=== PATIENT | female | born 1970 | race Caucasian/White ===

== ENCOUNTER 2020-06-07 12:56 | Emergency (ER) | payer OTHER, SELFPAY ==
[2020-06-07 13:04] VITALS: BP 118/85; PULSE 75; RESP 20; TEMP 36.7; O2SAT 99; BMI 40.7
[2020-06-07 13:11] VITALS: BP 118/85; PULSE 75; RESP 20; TEMP 36.7; O2SAT 99; BMI 32.3
--- NOTE | 2020-06-07 13:13 | XR_ITS ---
PROCEDURE: XR HAND LT MIN 3V CLINICAL INDICATION: SPLINTER IN RING FINGER Foreign body evaluation COMPARISON: No exams were available for comparison FINDINGS: No fracture or dislocation. No lytic or blastic change. There is normal mineralization. The joint spaces are well-preserved. No significant degenerative/arthritic changes. No erosive changes evident. Other findings:No radiopaque foreign body apparent. Mild degenerative changes 1st metacarpal carpal joint IMPRESSION: No acute findings. Dictated by: Flash Hinojosa MD 06/07/2020 14:35 Flash Hinojosa MD in [place] 06/07/2020 14:35
--- NOTE | 2020-06-07 14:13 | HMH.EDUTC ---
[facility] [place] Clinical Impression: Foreign body of finger of left hand Qualifiers: Encounter type: initial encounter Qualified Code(s): S60.459A - Superficial foreign body of unspecified finger, initial encounter Disposition: Home, Self-Care Condition on Discharge: Good Instructions: DI for Removal of Foreign Body From Skin Additional Instructions: Keep clean and dry Prescriptions: cephALEXin [Cephalexin 500mg Tab] 500 mg PO Q6H 10 Days #40 tab Transmission Status: Pending to [id number] Referrals: Corry Rodriguez APRN [Primary Care Provider] - Time of Disposition: 14:17 Medical Decision Making - Philip Inquiry Pt receiving controlled substance: No Vital Signs: 06/07/20 13:04 06/07/20 13:11 Temperature 98.1 F 98.1 F Temperature Source Oral Oral Pulse Rate [Left Radial] 75 75 Respiratory Rate 20 20 Blood Pressure [Right Arm] 118/85 118/85 Blood Pressure Mean [Right Arm] 96 96 Blood Pressure Source [Right Arm] Automatic Cuff Automatic Cuff Blood Pressure Position [Right Arm] Sitting Sitting 02 Sat by Pulse Oximetry 99 99 Oxygen Delivery Method Room Air Room Air Orders (Tests/Meds): ORDERS Category Date Time Status XR hand LT min 3V Stat Exams 06/07/20 13:13 Taken [facility] [place] - General Stated complaint: AO [id number] splinter in ring finger,left hand Time Seen by Provider: 06/07/20 13:10 Mode of Arrival: Ambulatory Source of Information: Patient Limitations: No Limitations Description of Symptoms (Recalled from Triage Doc. by RN): Piece of wood in left ring finger HEENT Symptoms (Recalled from RN notes): No Resp Symptoms (Recalled from RN notes): No Skin Symptoms (Recalled from RN notes): Yes MS Symptoms (Recalled from RN notes): No Functional Status (Recalled from RN notes): wnl - History of Present Illness Provider Complaint: Patient fell on deck this morning and got a sliver of wood lodged in left ring finger. attempted to get it out and she could not tolerate it. Last tetanus April 2020. Onset (ago): hour(s) (4) Location: left, upper extremity Relieving factors: none Exacerbating factors: none Associated symptoms: denies other symptoms Treatments prior to arrival: none - Related Data Previous Rx's Medication Instructions Recorded cephALEXin [Cephalexin 500mg Tab] 500 mg PO Q6H 10 Days #40 tab 06/07/20 Allergies Allergy/AdvReac Type Severity Reaction Status Date / Time daptomycin [From Cubicin] AdvReac Verified 06/07/20 13:17 metronidazole [From Flagyl] AdvReac Verified 06/07/20 13:17 Sulfa (Sulfonamide AdvReac Verified 06/07/20 13:17 Antibiotics) - Worker's Comp Is this a Worker's Comp case?: No [facility] History - Hepatitis A Screen Drug use history?: No High risk sexual behaviors?: No History of sexually transmitted infection?: No Currently employed?: No Childcare worker?: No Do you have indoor plumbing?: Yes Do you have electricity?: Yes Attestation statement:: This patient has been screened for Hepatitis A risk factors. I have reviewed the patient's past medical history: Yes - Social History Alcohol Intake: never Occupational Status: employed ROS Obtained: Yes All systems reviewed & no additional complaints - Musculoskeletal Musculoskeletal: Reports as per HPI Physical Exam - General General appearance: alert, in no apparent distress - Head Head exam: normocephalic - Eye Eye exam: Present: PERRL - ENT ENT exam: Present: normal oropharynx - Respiratory Respiratory exam: Present: normal lung sounds bilaterally - Cardiovascular Cardiovascular exam: Present: regular rate, normal rhythm - Expanded Upper Extremity Exam Left Hand exam: Present: other (wood sliver pad of left ring finger) - Neurological Exam Neurological exam: Present: alert, oriented X3 - Psychiatric Psychiatric exam: Present: normal affect, normal mood - Skin Skin exam: Present: other (foreign body pad left finger
[2020-06-07 14:21] VITALS: BP 118/85; PULSE 75; RESP 20; TEMP 36.7; O2SAT 99
== END 2020-06-07 14:25 | disposition home or self-care (01) ==
LOC: ER 13:05 → UTC 13:05
PROVIDERS: Emergency Provider Physician Assistant; PCP Nurse Practitioner Family
DX: S60.455A Superficial foreign body of left ring finger, initial encounter (principal); W01.198A Fall on same level from slipping, tripping and stumbling with subsequent striking against other object, initial encounter; Y92.019 Unspecified place in single-family (private) house as the place of occurrence of the external cause; Z88.2 Allergy status to sulfonamides
CPT/HCPCS: 10120; 73130; 99202; G0463

== ENCOUNTER 2021-04-18 19:29 | Emergency (ER) | payer OTHER, SELFPAY ==
[2021-04-18 19:37] VITALS: BP 146/83; PULSE 73; RESP 20; TEMP 37.3; O2SAT 95; BMI 33.4
[2021-04-18 19:50] VITALS: BP 146/83; PULSE 73; RESP 20; TEMP 37.3; O2SAT 95; BMI 33.3
[2021-04-18 20:02] LABS: UTC Influenza A Antigen Negative (Negative); UTC Strep Screen (Rapid) Negative (Negative)
[2021-04-18 20:03] LABS: UTC Influenza B Antigen Negative (Negative)
--- NOTE | 2021-04-18 20:18 | HMH.EDUTC ---
[facility] [place] Disposition Clinical Impression: Vertigo Otitis media Qualifiers: Otitis media type: unspecified Laterality: right Qualified Code(s): H66.91 - Otitis media, unspecified, right ear Disposition: Home, Self-Care Condition on Discharge: Good Instructions: Middle Ear Infections (Alternative Therapy), Middle Ear Infection, DI for Vertigo, Amoxicillin Additional Instructions: *Monitor Temp, Over the counter Motrin or Tylenol as directed/as needed Tylenol every 4 hours and Motrin every 6 hours (as long as your family doctor has told you that you can take it) for fever or pain. and straight to ER if unable to lower temp less than 101.0 after medication given *Warm salt water gargles may help to soothe the throat *Throat Lozenges *Warm fluids like tea with honey may help to soothe the throat *Sleep elevated *Humidifier/Vaporizer Take medication as prescribed Slow and steady movements when you go from laying to sitting let your feet dangle before standing up to help with dizziness Follow up with your Family Doctor if symptoms continue or worsen Your throat swab was sent for culture. Those results are typically sent to your primary care. Be sure to follow up in 2-3 days with your family doctor/primary care physician if no improvement so they can review those result and treat if necessary. If you don?t have a primary care doctor, I recommend you get one but in the mean time, you will have to return to a walk in clinic Follow up IMMEDIATELY for new or worsening symptoms or no Noticeable improvement over the next 48-72 hours. 911 for difficulty breathing or swallowing You were tested for today for COVID19 your test result should be back in the next 24-48 hours, you may check the [facility] [employer] [facility] portal for your results if you have trouble logging on or seeing your results you may call You was given a handout with instructions for Self Quarantine and Self isolation for while you wait on test results and what to do if they are positive If you are positive the Health Dept will be contacting you also Make sure to take your Vitamins Vit. C Vit D and Zinc if you can take them Prescriptions: Meclizine HCl 25 mg PO Q8HP PRN #15 tab PRN Reason: Vertigo Transmission Status: Pending to [facility] Amoxicillin [Amoxicillin 875MG Tab] 875 mg PO Q12H #20 tab Transmission Status: P[facility] to [facility] methylPREDNISolone [Medrol 4mg tab] 4 mg PO DIRECTED #21 tab Transmission Status: Pending to [facility] Referrals: Corry Rodriguez APRN [Primary Care Provider] - As needed Forms: Work/School Release Time of Disposition: 20:52 Medical Decision Making - Philip Inquiry Pt receiving controlled substance: No Philip was queried for this patient: No Vital Signs: 04/18/21 19:37 04/18/21 19:50 04/18/21 20:43 Temperature 99.1 F 99.1 F 99.1 F Temperature Source Oral Oral Pulse Rate 73 Pulse Rate [Apical] 73 73 Respiratory Rate 20 20 20 Blood Pressure 146/83 H Blood Pressure [Right Arm] 146/83 H 146/83 H Blood Pressure Mean [Right Arm] 104 104 Blood Pressure Source [Right Arm] Automatic Cuff Automatic Cuff Blood Pressure Position [Right Arm] Sitting Sitting 02 Sat by Pulse Oximetry 95 95 Oxygen Delivery Method Room Air Room Air - Lab Data Lab results reviewed: Yes: I reviewed the patient's lab results. Lab Results 04/18/21 19:45: Influenza Type A Ag Negative, Influenza Type B Ag Negative 04/18/21 19:45: Strep Scn Rapid Clinic Negative Orders (Tests/Meds): ED MEDICATIONS Discontinued Medications Generic Name Dose Route Start Last Admin Trade Name Kim PRN Reason Stop Dose Admin Meclizine HCl 25 mg 04/18/21 20:20 04/18/21 20:29 Meclizine 25mg Tablet PO 04/18/21 20:21 Not Given ONCE ONE Meclizine HCl 12.5 mg 04/18/21 20:23 04/18/21 20:29 Meclizine 12.5mg Tablet PO 04/18/21 20:24 Not Given ONCE ONE Meclizine HCl 25 mg 04/18/21 20:26 04/18/21 20:29
[2021-04-18 20:43] VITALS: BP 146/83; PULSE 73; RESP 20; TEMP 37.3; O2SAT 95
== END 2021-04-18 21:05 | disposition home or self-care (01) ==
PROVIDERS: Emergency Provider Nurse Practitioner; PCP Nurse Practitioner Family
DX: R42 Dizziness and giddiness (principal); H66.91 Otitis media, unspecified, right ear; U07.1 COVID-19
CPT/HCPCS: 87804; 87880; 99202; C9803; G0463; U0003; U0005